=== PATIENT | male | born 1990 | race Two or more races ===

== ENCOUNTER 2025-01-01 20:20 | Emergency (ER) | payer OTHER ==
[~2025-01-01] VITALS: Ht 188 cm; Wt 115.0 kg
[2025-01-01 20:34] VITALS: BP 117/74; PULSE 77; RESP 16; TEMP 97.7; O2SAT 98
== END 2025-01-01 23:27 | disposition left against medical advice (07) ==
LOC: EMS 20:20
DX: S61.412A Laceration without foreign body of left hand, initial encounter (principal); Z53.21 Procedure and treatment not carried out due to patient leaving prior to being seen by health care provider; W45.8XXA Other foreign body or object entering through skin, initial encounter; Y93.89 Activity, other specified; Y92.89 Other specified places as the place of occurrence of the external cause; Y99.8 Other external cause status
CPT/HCPCS: 99281; Z7502